=== PATIENT | female | born 1975 | race Caucasian/White ===

== ENCOUNTER 2016-09-19 13:45 | Observation (INO) | payer MEDICAID ==
[~2016-09-19] VITALS: Ht 165.1 cm; Wt 80.0 kg
[2016-09-19 13:47] VITALS: BP 118/60; PULSE 82; RESP 14; TEMP 98.2; O2SAT 97
[2016-09-19 15:02] LABS: AUTOMATED NEUTROPHIL # 6.1 TH/MM3 (1.8-7.7); BASOPHIL % 0.2 % (0.0-2.0); EOSINOPHIL # 0.1 TH/MM3 (0-0.4); EOSINOPHIL % 1.1 % (0.0-4.0); LYMPH % 19.3 % (9.0-44.0); LYMPHOCYTE # 1.6 TH/MM3 (1.0-4.8); MEAN CELL VOLUME 67.9 FL (80.0-100.0); MEAN CORPUSCULAR HEMOGLOBIN 22.1 PG (27.0-34.0); MEAN CORPUSCULAR HGB CONC 32.6 % (32.0-36.0); MONO % 5.5 % (0.0-8.0); NEUT % 73.9 % (16.0-70.0); PLATELET COUNT 338 TH/MM3 (150-450); RED BLOOD COUNT 4.71 MIL/MM3 (4.00-5.30); RED CELL DISTRIBUTION WIDTH 16.7 % (11.6-17.2); WHITE BLOOD COUNT 8.3 TH/MM3 (4.0-11.0)
[2016-09-19 15:05] LABS: HEMO FLAGS AUTO DIFF
[2016-09-19 15:23] LABS: ANION GAP 5 MEQ/L (5-15); BICARBONATE 27.6 MEQ/L (21.0-32.0); BLOOD UREA NITROGEN 11 MG/DL (7-18); CHLORIDE 103 MEQ/L (98-107); GLOMERULAR FILTRATION RATE 111 ML/MIN (>89); POTASSIUM 3.9 MEQ/L (3.5-5.1); SODIUM (NA) 136 MEQ/L (136-145)
[2016-09-19 15:27] LABS: CREATINE KINASE 48 U/L (26-192)
[2016-09-19 15:36] LABS: OVALOCYTES 1+ (NORMAL); PLATELET ESTIMATE SMEAR NORMAL (NORMAL); PLATELET MORPHOLOGY NORMAL (NORMAL); SCAN/DIFF AUTO DIFF CONFIRMED
[2016-09-19 18:51] VITALS: BP 115/58; PULSE 59; RESP 17; TEMP 97.8; O2SAT 99
--- NOTE | 2016-09-19 18:51 | PD ---
HPI Chief Complaint: Chest Pain Time Seen by Provider: 18:47 Travel History International Travel<30 days: No Contact w/Intl Traveler<30days: No Traveled to known affect area: No History of Present Illness HPI 41-year-old female with no significant past medical issues, presents to the ER today because she started having substernal chest discomfort with radiation down the left arm which she describes as a burning pain which is mild starting this morning. She states that she has had some mild shortness of breath. She denies any nausea, vomiting, abdominal pains, or any other symptoms. She has not noticed any relation to food, has not noticed any exacerbating or alleviating factors. Modifying Factors: None Associated Signs & Symptoms: Chest pain Risk Factors: None PFSH Past Medical History Diminished Hearing: No Social History Alcohol Use: Yes (OCCASIONALLY) Tobacco Use: No Substance Use: No Allergies-Medications (Allergen,Severity, Reaction): Coded Allergies: No Known Allergies (Verified , 09/19/16) Reported Meds & Prescriptions Reported Meds & Active Scripts Active No Active Prescriptions or Reported Medications Review of Systems Except as stated in HPI: all other systems reviewed are Neg Physical Exam Narrative GENERAL: Well-nourished, well-developed middle age female patient in no acute distress. SKIN: Warm and dry. HEAD: Normocephalic. EYES: No scleral icterus. No injection or drainage. NECK: Supple, trachea midline. CARDIOVASCULAR: Regular rate and rhythm without murmurs, gallops, or rubs. RESPIRATORY: Breath sounds equal bilaterally. No accessory muscle use. GASTROINTESTINAL: Abdomen soft, non-tender, nondistended. MUSCULOSKELETAL: No cyanosis, or edema. BACK: Nontender without obvious deformity. No CVA tenderness. Data Data Last Documented VS Vital Signs Date Time Temp Pulse Resp B/P Pulse Ox O2 Delivery O2 Flow Rate FiO2 09/19/16 18:51 97.8 59 17 115/58 99 Room Air Orders Electrocardiogram (09/19/16 14:26) Complete Blood Count With Diff (09/19/16 14:26) Basic Metabolic Panel (Bmp) (09/19/16 14:26) Ckmb (Isoenzyme) Profile (09/19/16 14:26) Troponin I (09/19/16 14:26) Chest, Single Ap (09/19/16 18:40) Labs Laboratory Tests Test 09/19/16 14:44 White Blood Count 8.3 TH/MM3 Red Blood Count 4.71 MIL/MM3 Hemoglobin 10.4 GM/DL Hematocrit 32.0 % Mean Corpuscular Volume 67.9 FL Mean Corpuscular Hemoglobin 22.1 PG Mean Corpuscular Hemoglobin 32.6 % Concent Red Cell Distribution Width 16.7 % Platelet Count 338 TH/MM3 Mean Platelet Volume 7.3 FL Neutrophils (%) (Auto) 73.9 % Lymphocytes (%) (Auto) 19.3 % Monocytes (%) (Auto) 5.5 % Eosinophils (%) (Auto) 1.1 % Basophils (%) (Auto) 0.2 % Neutrophils # (Auto) 6.1 TH/MM3 Lymphocytes # (Auto) 1.6 TH/MM3 Monocytes # (Auto) 0.5 TH/MM3 Eosinophils # (Auto) 0.1 TH/MM3 Basophils # (Auto) 0.0 TH/MM3 CBC Comment AUTO DIFF Differential Comment AUTO DIFF CONFIRMED Platelet Estimate NORMAL Platelet Morphology Comment NORMAL Ovalocytes 1+ Sodium Level 136 MEQ/L Potassium Level 3.9 MEQ/L Chloride Level 103 MEQ/L Carbon Dioxide Level 27.6 MEQ/L Anion Gap 5 MEQ/L Blood Urea Nitrogen 11 MG/DL Creatinine 0.60 MG/DL Estimat Glomerular Filtration 111 ML/MIN Rate Random Glucose 86 MG/DL Calcium Level 8.8 MG/DL Total Creatine Kinase 48 U/L Troponin I LESS THAN 0.02 NG/ML [facility] Medical Decision Making Medical Screen Exam Complete: Yes Emergency Medical Condition: Yes Medical Record Reviewed: Yes Interpretation(s) EKG shows NSR, no ST elevation or depression, and no arrhythmias. No significant T-wave inversions. Laboratory Tests Test 09/19/16 14:44 Hemoglobin 10.4 GM/DL (11.6-15.3) Hematocrit 32.0 % (35.0-46.0) Mean Corpuscular Volume 67.9 FL (80.0-100.0) Mean Corpuscular Hemoglobin 22.1 PG (27.0-34.0) Neutrophils (%) (Auto) 73.9 % (16.0-70.0) Ovalocytes 1+ (NORMAL) Troponin I LESS THAN 0.02 NG/ML (0.02-0.05) Differential Diagnosis Chest painsGI versus ACS versus dysrhythmias versus costochondritis Narrative Course Workup initiated in triage, EKG did not show any signs of acute dysrhythmias or ST changes. Cardiac enzymes are negative. Chest x-ray has been ordered. Physician Communication Physician Communication Case is signed out to Dr. León awaiting chest x-ray. Diagnosis Primary Impression: CHEST PAIN, UNSPECIFIED Scripts No Active Prescriptions or Reported Meds Condition: Stable Jacob Ontiveros MD Sep 19, 2016 18:51
--- NOTE | 2016-09-19 19:54 | RADRPT ---
EXAM DATE/TIME: 09/19/2016 17:06 [facility] COMPARISON: No previous studies available for comparison. INDICATIONS : Chest pain started at 5 am. MEDICAL HISTORY : None. SURGICAL HISTORY : None. ENCOUNTER: Initial ACUITY: 1 day PAIN SCORE: 10 LOCATION: Bilateral chest FINDINGS: A single view of the chest demonstrates the lungs to be symmetrically aerated without evidence of mas s, infiltrate or effusion. The cardiomediastinal contours are unremarkable. Osseous structures are intact. CONCLUSION: No acute disease. Mike Flowers MD on September 19, 2016 at 19:51 Board Certified Radiologist. This report was verified electronically.
--- NOTE | 2016-09-19 20:06 | PD ---
Data Data Last Documented VS Vital Signs Date Time Temp Pulse Resp B/P Pulse Ox O2 Delivery O2 Flow Rate FiO2 09/19/16 18:51 97.8 59 17 115/58 99 Room Air Orders Electrocardiogram (09/19/16 14:26) Complete Blood Count With Diff (09/19/16 14:26) Basic Metabolic Panel (Bmp) (09/19/16 14:26) Ckmb (Isoenzyme) Profile (09/19/16 14:26) Troponin I (09/19/16 14:26) Chest, Single Ap (09/19/16 18:40) Activity Bed Rest With Brp (09/19/16 20:03) Vital Signs (Adult) Q4H (09/19/16 20:03) Cardiac Rhythm .As Directed (09/19/16 20:) ^ Notify Dr: Other .PRN (09/19/16 20:03) ^ Notify Dr. Parameters (09/19/16 20:03) Resp Oxygen Nasal Cannula (09/19/16 ) Ckmb (Isoenzyme) Profile (09/19/16 20:03) Ckmb (Isoenzyme) Profile (09/19/16 23:03) Troponin I (09/19/16 20:03) Troponin I (09/19/16 23:03) Electrocardiogram (09/19/16 20:03) Electrocardiogram (09/19/16 23:03) ^ Obtain (09/19/16 20:03) Sodium Chloride 0.9% Flush (Ns Flush) (09/19/16 20:15) Sodium Chloride 0.9% Flush (Ns Flush) (09/19/16 21:00) Acetaminophen (Tylenol) (09/19/16 20:15) Acetamin-Hydrocod 325-7.5 Mg ([place] 7.5 (09/19/16 20:15) Morphine Inj (Morphine Inj) (09/19/16 20:15) Ondansetron Inj (Zofran Inj) (09/19/16 20:15) Nitroglycerin Sl (Nitrostat Sl) (09/19/16 20:15) Aspirin (Aspirin) (09/20/16 09:00) Temazepam (Restoril) (09/19/16 20:15) Alprazolam (Xanax) (09/19/16 20:15) Jalousie Installer / Telemetry [email or web address] (09/19/16 20:03) Admit Order (Ed Use Only) (09/19/16 20:03) Labs Laboratory Tests Test 09/19/16 14:44 White Blood Count 8.3 TH/MM3 Red Blood Count 4.71 MIL/MM3 Hemoglobin 10.4 GM/DL Hematocrit 32.0 % Mean Corpuscular Volume 67.9 FL Mean Corpuscular Hemoglobin 22.1 PG Mean Corpuscular Hemoglobin 32.6 % Concent Red Cell Distribution Width 16.7 % Platelet Count 338 TH/MM3 Mean Platelet Volume 7.3 FL Neutrophils (%) (Auto) 73.9 % Lymphocytes (%) (Auto) 19.3 % Monocytes (%) (Auto) 5.5 % Eosinophils (%) (Auto) 1.1 % Basophils (%) (Auto) 0.2 % Neutrophils # (Auto) 6.1 TH/MM3 Lymphocytes # (Auto) 1.6 TH/MM3 Monocytes # (Auto) 0.5 TH/MM3 Eosinophils # (Auto) 0.1 TH/MM3 Basophils # (Auto) 0.0 TH/MM3 CBC Comment AUTO DIFF Differential Comment AUTO DIFF CONFIRMED Platelet Estimate NORMAL Platelet Morphology Comment NORMAL Ovalocytes 1+ Sodium Level 136 MEQ/L Potassium Level 3.9 MEQ/L Chloride Level 103 MEQ/L Carbon Dioxide Level 27.6 MEQ/L Anion Gap 5 MEQ/L Blood Urea Nitrogen 11 MG/DL Creatinine 0.60 MG/DL Estimat Glomerular Filtration 111 ML/MIN Rate Random Glucose 86 MG/DL Calcium Level 8.8 MG/DL Total Creatine Kinase 48 U/L Troponin I LESS THAN 0.02 NG/ML [facility] Medical Record Reviewed: Yes Supervised Visit with SHANE: No Narrative Course Please refer to the outgoing provider's documentation. Today's workup demonstrates the following: CBC & BMP Diagram 09/19/16 14:44 Troponin is undetectable EKG: Sinus, normal axis/intervals, rate approx mid-70 Last 24 hours Impressions Chest X-Ray 09/19/16 1840 Signed Impressions: Service Date/Time: Monday, September 19, 2016 17:06 - CONCLUSION: No acute disease. Mike Flowers MD Overall risk factor profile is fairly low. The patient offers a history somewhat atypical for coronary disease. She is in favor chest pain evaluation. Repeat EKG again demonstrated no ischemic injury pattern normal axis and intervals. Diagnosis Primary Impression: Chest pain Qualified Code: R07.9 - Chest pain, unspecified type Admitting Information Admitting Physician Requests: Observation Scripts No Active Prescriptions or Reported Meds Condition: Justin Crowley MD Sep 19, 2016 20:05
[2016-09-19] MEDS ORDERED: MORPHINE SULFATE 4 MG/ML INJ IV PRN (20:15)
[2016-09-19] MEDS ORDERED: TEMAZEPAM 15 MG CAP PO PRN (20:15)
[2016-09-19] MEDS ORDERED: ONDANSETRON HCL 4 MG/2 ML VIAL IV PRN (20:15)
[2016-09-19] MEDS ORDERED: ALPRAZolam 0.25 MG TAB PO PRN (20:15)
[2016-09-19] MEDS ORDERED: ACETAMINOPHEN/HYDROcodone 325 MG/7.5 MG TAB PO PRN (20:15)
[2016-09-19] MEDS ORDERED: NITROGLYCERIN 0.4 MG SL 25 TABS/BTL SL PRN (20:15)
[2016-09-19] MEDS ORDERED: SODIUM CHLORIDE 0.9% FLUSH 5 ML FLUSH IVF PRN (20:15)
[2016-09-19] MEDS: SODIUM CHLORIDE 0.9% FLUSH 5 ML FLUSH IVF SCH (20:55)
[2016-09-19 20:58] VITALS: O2SAT 99
[2016-09-19 21:37] LABS: CREATINE KINASE 49 U/L (26-192)
[2016-09-19 22:45] VITALS: PULSE 90
[2016-09-19 23:00] VITALS: PULSE 90
[2016-09-19] MEDS: ACETAMINOPHEN 500 MG CPLT PO PRN (23:15)
[2016-09-19 23:32] VITALS: BP 128/60; PULSE 68; RESP 18; TEMP 98.2; O2SAT 97
[2016-09-19 23:50] LABS: CREATINE KINASE 42 U/L (26-192)
[2016-09-20] MEDS ORDERED: ASPIRIN 325 MG TAB PO SCH (09:00)
[2016-09-20 09:16] VITALS: BP 121/72; PULSE 76; RESP 18; TEMP 98.2; O2SAT 98
--- NOTE | 2016-09-20 11:10 | HHI.HP ---
HPI Primary Care Physician No Primary Care Physician Chief Complaint Chest pain History of Present Illness This is a 41-year-old female that presents to the ED with a complaint of chest discomfort. Patient speaks Cambodian. Her history is obtained using the [employer] translation system. Her daughter is also at the bedside but will not be utilized for translation. Patient complains of a discomfort that began at 5:00 yesterday morning. It was a burning discomfort left chest and shoulder. It lasted 1 minute. No associated nausea, diaphoresis, or shortness of breath. Denies recent travel. Denies calf pain or swelling. Denies . Review of Systems General: Patient denies fevers, chills recent, and recent travel. HEENT: Patient denies headache, sore throat, difficulty swallowing. Cardiovascular: Has the chest discomfort as mentioned above. Denies sensation of heart beating rapidly or irregularly. No syncope. Respiratory: Denies shortness of breath or inspirational chest discomfort. Denies coughing wheezing or hemoptysis. GI: Patient denies nausea, vomiting, diarrhea, abdominal pain, bloody stools. Musculoskeletal: Patient denies joint pain or edema. Denies calf pain or edema. Neurovascular: Patient denies numbness, tingling, weakness in extremities. Denies headache. Endocrine: Denies polyuria and polydipsia. Hematologic: Denies easy bruising. Skin: Denies rash or itching. Past Family Social History Allergies: Coded Allergies: No Known Allergies (Verified , 09/19/16) Past Medical History Denies hypertension, hyperlipidemia, diabetes, and known CAD. History of anemia. Past Surgical History Noncontributory. Reported Medications Denies. Family History Denies family history of CAD. Social History Patient does not smoke, drink alcohol, or use illicit drugs. Physical Exam Vital Signs Vital Signs Date Time Temp Pulse Resp B/P Pulse Ox O2 Delivery O2 Flow Rate FiO2 09/20/16 09:16 98.2 76 18 121/72 98 09/20/16 00:06 12 09/19/16 23:32 98.2 68 18 128/60 97 09/19/16 23:00 90 09/19/16 22:45 90 09/19/16 22:45 90 09/19/16 20:58 99 09/19/16 18:51 97.8 59 17 115/58 99 Room Air 09/19/16 18:45 60 17 98 Room Air 2/7/17 13:47 98.2 82 14 118/60 97 Room Air Physical Exam GENERAL: This is a well-nourished, well-developed patient, in no apparent distress. Patient speaks Cambodian the [employer] system is utilized for translation. Patient is pleasant. HEENT: Head is atraumatic and normocephalic. Neck is supple without lymphadenopathy and trachea is midline. No JVD or carotid bruits. CARDIOVASCULAR: Regular rate and rhythm without murmurs, gallops, or rubs. RESPIRATORY: Clear to auscultation. Breath sounds equal bilaterally. No wheezes , rales, or rhonchi. Chest wall is nontender. No use of accessory muscles. GASTROINTESTINAL: Abdomen is nontender, nondistended. Abdomen soft. No obvious pulsatile mass or bruit. No CVA tenderness. Strong femoral pulses bilaterally. Normal bowel sounds in all quadrants. MUSCULOSKELETAL: Patient is moving upper and lower extremities freely. No calf tenderness or edema, no Homans sign. Strong pulses in upper and lower extremities. NEUROLOGICAL: Patient is alert and oriented. Cranial nerves 2-12 are grossly intact. No focal deficits and speech is clear. SKIN: No rash and turgor is normal. Laboratory Laboratory Tests Test 09/19/16 09/19/16 09/19/16 14:44 20:51 22:47 White Blood Count 8.3 Red Blood Count 4.71 Hemoglobin 10.4 Hematocrit 32.0 Mean Corpuscular Volume 67.9 Mean Corpuscular Hemoglobin 22.1 Mean Corpuscular Hemoglobin 32.6 Concent Red Cell Distribution Width 16.7 Platelet Count 338 Mean Platelet Volume 7.3 Neutrophils (%) (Auto) 73.9 Lymphocytes (%) (Auto) 19.3 Monocytes (%) (Auto) 5.5 Eosinophils (%) (Auto) 1.1 Basophils (%) (Auto) 0.2 Neutrophils # (Auto) 6.1 Lymphocytes # (Auto) 1.6 Monocytes # (Auto) 0.5 Eosinophils # (Auto) 0.1 Basophils # (Auto) 0.0 CBC Comment AUTO DIFF Differential Comment AUTO DIFF CONFIRMED Platelet Estimate NORMAL Platelet Morphology Comment NORMAL Ovalocytes 1+ Sodium Level 136 Potassium Level 3.9 Chloride Level 103 Carbon Dioxide Level 27.6 Anion Gap 5 Blood Urea Nitrogen 11 Creatinine 0.60 Estimat Glomerular Filtration 111 Rate Random Glucose 86 Calcium Level 8.8 Total Creatine Kinase 48 49 42 Troponin I LESS THAN 0.02 LESS THAN 0.02 LESS THAN 0.02 Result Diagram: 09/19/16 1444 09/19/16 1444 Imaging Last 24 hours Impressions Chest X-Ray 09/19/16 1840 Signed Impressions: Service Date/Time: Monday, September 19, 2016 17:06 - CONCLUSION: No acute disease. Mike Flowers MD Course EKGs have sinus rhythm without significant ST segment elevation or depressions. Assessment and Plan Assessment and Plan Atypical chest pain: Patient had serial EKGs and cardiac enzymes and has ruled out. She has been seen by Dr. Juan Carlos Morton of cardiology and the chest pain center and will undergo a Lexiscan. If the stress test were to be nonischemic she'll be discharged home with instructions to follow-up with local primary care physician. Naldo Donahue Sep 20, 2016 11:09
[2016-09-20] MEDS ORDERED: REGADENOSON INJ 0.4 MG/5 ML SYR ONE (11:46)
[2016-09-20 13:04] VITALS: BP 158/63; PULSE 73; RESP 18; TEMP 98; O2SAT 99
[2016-09-20] MEDS: ACETAMINOPHEN 500 MG CPLT PO PRN (13:19)
[2016-09-20] MEDS: SODIUM CHLORIDE 0.9% FLUSH 5 ML FLUSH IVF SCH (13:20)
--- NOTE | 2016-09-20 13:38 | RADRPT ---
EXAM DATE/TIME: 09/20/2016 11:17 [facility] COMPARISON: No previous studies available for comparison. INDICATIONS : Substernal chest pain radiating down left arm. Angina. DOSE: 26.1 mCi Tc99m Myoview at stress. 8.1 mCi Tc99m Myoview at rest. 0.4 mg Lexiscan STRESS SYMPTOMS: Dyspnea. EJECTION FRACTION: 69% MEDICAL HISTORY : None SURGICAL HISTORY : None. ENCOUNTER: Initial ACUITY: 1 day PAIN SCALE: 4/10 LOCATION: Substernal chest TECHNIQUE: The patient underwent pharmacologic stress with infusion of prescribed dose. Continuous ECG tracing was monitored during stress. Gated SPECT imaging was performed after stress and conventional SPECT i maging was performed at rest. The examination was performed on a SPECT/CT scanner, both attenuation and non-corrected datasets were reviewed. FINDINGS: The Gated cineloop images demonstrate no focal wall motion abnormality. The left ventricular ejectio n fraction is calculated at 69%. The cardiac SPECT stress and rest images demonstrate questionable fixed defect involving the lateral wall suggesting possible LCX infarct. No reversible defect is noted to suggest ischemia. CONCLUSION: 1. Questionable fixed defect involving the lateral wall suggesting LCX infarct. Clinical correlation is recommended. 2. No reversible defect to suggest ischemia. 3. No focal wall motion abnormality. Left ventricular ejection fraction is calculated at 69%. RISK CATEGORY: Low risk (less than 1% annual mortality rate). South Smith MD on September 20, 2016 at 13:01 Board Certified Radiologist. This report was verified electronically.
--- NOTE | 2016-09-20 14:02 | HHI.DCPOC ---
Discharge Care Plan Diagnosis: (1) Chest pain, atypical Goals to Promote Your Health * To prevent worsening of your condition and complications * To maintain your health at the optimal level Directions to Meet Your Goals Take your medications as prescribed Follow your dietary instruction Follow activity as directed Keep your appointments as scheduled Take your immunizations and boosters as scheduled If your symptoms worsen call your PCP, if no PCP go to Urgent Care Center or Emergency Room Smoking is Dangerous to Your Health. Avoid second hand smoke Call the 24-hour hour crisis hotline for domestic abuse at Naldo Donahue Sep 20, 2016 14:02
[2016-09-20 14:20] VITALS: RESP 18
--- NOTE | 2016-09-20 16:02 | EKG ---
Date Performed: 09/19/2016 Time Performed: 23:07:53 PTAGE: 41 years EKG: Sinus rhythm NORMAL ECG PREVIOUS TRACING : 09/19/2016 14.40 Since previous tracing, no significant change noted DOCTOR: Juan Carlos Morton Interpretating Date/Time 09/20/2016 16:00:58
--- NOTE | 2016-09-20 16:03 | EKG ---
Date Performed: 09/19/2016 Time Performed: 20:38:25 PTAGE: 41 years EKG: Sinus rhythm NORMAL ECG PREVIOUS TRACING : 09/19/2016 14.40 Since previous tracing, no significant change noted DOCTOR: Juan Carlos Morton Interpretating Date/Time 09/20/2016 16:01:59
--- NOTE | 2016-09-20 16:05 | EKG ---
Date Performed: 09/19/2016 Time Performed: 14:40:00 PTAGE: 41 years EKG: Sinus rhythm NORMAL ECG NO PREVIOUS TRACING DOCTOR: Juan Carlos Morton Interpretating Date/Time 09/20/2016 16:03:27
--- NOTE | 2016-09-20 16:07 | TR ---
Date Performed: 09/20/2016 Time Performed: 11:51:20 DOCTOR: Juan Carlos Morton DRUG LIST: CLINICAL HISTORY: REASON FOR TEST: Angina REASON FOR ENDING: OBSERVATION: CONCLUSION: Lexiscan stress test was performed under standard four minute protocol. Radionuclid e was injected one minute prior to ending the test. No electrocardiographic abormalities were present to suggest ischemia. Nuclear imaging and interpretation are pending. COMMENTS:
== END 2016-09-20 20:21 | disposition home or self-care (01) ==
LOC: NEPC 13:45 → NEDA 20:06 → NEPHCDU 22:30
PROVIDERS: ADMIT Internal Medicine Interventional Cardiology; ATTEND Internal Medicine Interventional Cardiology
DX: R07.89 Other chest pain (principal)
CPT/HCPCS: 71010; 78452; 80048; 82550; 84484; 85025; 93005; 93017; 99285; A9502; G0378; J2785